=== PATIENT | female | born 2005 | race Caucasian/White ===

== ENCOUNTER 2023-07-17 22:57 | Emergency (ER) | payer BC ==
[2023-07-17 23:08] VITALS: BP 135/81; PULSE 113; RESP 18; TEMP 98.4; BMI 43.7
[2023-07-17] MEDS ORDERED: SODIUM CHLORIDE 0.9% 500 ML INFUS.BAG IV ONE (23:43)
[2023-07-18 00:57] LABS: BASO % 0.4 % (0-2.0); EOS % 0.3 % (0-4.5); HEMATOCRIT 34.1 % (32.4-45.2); HEMOGLOBIN 10.6 GM/dL (10.7-15.3); LYMPH % 13.2 % (8-40); MCH 20.4 pg (25.7-33.7); MEAN CELL VOLUME 65.8 fl (80-96); MONO % 6.3 % (3.8-10.2); NEUT % 79.8 % (42.8-82.8); PLATELET COUNT 321 10^3/uL (134-434); RBC 5.18 M/mm3 (3.60-5.2); RDW 16.9 % (11.6-15.6); WHITE BLOOD COUNT 11.4 K/mm3 (4.0-10.0)
[2023-07-18 01:16] LABS: POTASSIUM 4.1 mmol/L (3.5-5.1)
[2023-07-18 01:18] LABS: BLOOD UREA NITROGEN 13.1 mg/dL (7-18); CALCIUM 9.1 mg/dL (8.5-10.1)
[2023-07-18 01:19] LABS: ALBUMIN 3.5 g/dl (3.4-5.0)
[2023-07-18 01:22] LABS: CREATININE 0.7 mg/dL (0.55-1.3)
[2023-07-18 01:23] LABS: BILIRUBIN,TOTAL 0.2 mg/dL (0.2-1); TOT PROT 7.3 g/dl (6.4-8.2)
[2023-07-18 02:14] LABS: URINE APPEARANCE CLEAR; URINE BILIRUBIN NEGATIVE (NEGATIVE); URINE COLOR YELLOW; URINE GLUCOSE (UA) NEGATIVE (NEGATIVE); URINE KETONE 1+ (NEGATIVE); URINE LEUK ESTERASE NEGATIVE (NEGATIVE); URINE NITRITE NEGATIVE (NEGATIVE); URINE PROTEIN NEGATIVE (NEGATIVE); URINE UROBILINOGEN 0.2 mg/dL (0.2-1.0)
[2023-07-18 03:08] LABS: ANISOCYTOSIS 2+; MACROCYTOSIS 0; TEAR DROP CELLS 1+
[2023-07-18] MEDS ORDERED: LORazepam 2 MG TABLET PO ONE (04:10)
[2023-07-18] MEDS ORDERED: LORazepam 1 MG TABLET ONE (04:21)
== END 2023-07-18 04:49 | disposition home or self-care (01) ==
LOC: JER 22:57
DX: F41.0 Panic disorder [episodic paroxysmal anxiety] (principal); E66.01 Morbid (severe) obesity due to excess calories; Z68.41 Body mass index [BMI] 40.0-44.9, adult; Z20.822 Contact with and (suspected) exposure to COVID-19
CPT/HCPCS: 0241U-QW; 36415; 80053; 81003; 84436; 84439; 84443; 84703; 85025; 85379; 93005; 93010; 99284-25

== ENCOUNTER 2023-08-19 19:20 | Emergency (ER) | payer BC, OTHER ==
[2023-08-19 19:25] VITALS: TEMP 99; BMI 43.0
[2023-08-19] MEDS ORDERED: ACETAMINOPHEN 500 MG TABLET (FP) PO ONE (21:47)
[2023-08-19] MEDS ORDERED: SODIUM CHLORIDE 1,000 ML IV STA (21:49)
[2023-08-19] MEDS ORDERED: ACETAMINOPHEN 500 MG TABLET (FP) ONE (23:09)
[2023-08-19 23:18] LABS: BASO % 0.4 % (0-2.0); EOS % 1.2 % (0-4.5); HEMATOCRIT 34.1 % (32.4-45.2); HEMOGLOBIN 10.4 GM/dL (10.7-15.3); LYMPH % 16.2 % (8-40); MCH 20.3 pg (25.7-33.7); MCHC 30.6 g/dl (32.0-36.0); MEAN CELL VOLUME 66.6 fl (80-96); MEAN PLT VOLUME 8.8 fl (7.5-11.1); MONO % 5.2 % (3.8-10.2); PH,URINE 5.5 (5.0-8.0); PLATELET COUNT 331 10^3/uL (134-434); RBC 5.12 M/mm3 (3.60-5.2); RDW 16.7 % (11.6-15.6); URINE APPEARANCE CLOUDY; URINE BILIRUBIN NEGATIVE (NEGATIVE); URINE COLOR YELLOW; URINE GLUCOSE (UA) NEGATIVE (NEGATIVE); URINE KETONE NEGATIVE (NEGATIVE); URINE LEUK ESTERASE NEGATIVE (NEGATIVE); URINE NITRITE NEGATIVE (NEGATIVE); URINE PROTEIN NEGATIVE (NEGATIVE); WHITE BLOOD COUNT 11.9 K/mm3 (4.0-10.0)
[2023-08-19 23:46] LABS: CHLORIDE 110 mmol/L (98-107); POTASSIUM 4.2 mmol/L (3.5-5.1); SODIUM 141 mmol/L (136-145)
[2023-08-19 23:48] LABS: ANION GAP 6 mmol/L (4-13); BLOOD UREA NITROGEN 13.4 mg/dL (7-18); CALCIUM 9.4 mg/dL (8.5-10.1); CO2 25 mmol/L (21-32); GLUCOSE,RANDOM 97 mg/dL (74-106)
[2023-08-19 23:49] LABS: ALBUMIN 3.4 g/dl (3.4-5.0)
[2023-08-19 23:51] LABS: SGPT/ALT 16 U/L (13-61)
[2023-08-19 23:52] LABS: CREATININE 0.8 mg/dL (0.55-1.3); SGOT/AST 11 U/L (15-37)
[2023-08-19 23:53] LABS: BILIRUBIN,TOTAL < 0.1 mg/dL (0.2-1); TOT PROT 7.4 g/dl (6.4-8.2)
[2023-08-19 23:54] LABS: ALK PHOS 83 U/L (45-117)
[2023-08-20 00:22] VITALS: BP 126/80; PULSE 80; RESP 16
[2023-08-20 06:43] LABS: ANISOCYTOSIS 3+; MACROCYTOSIS 0; OVALOCYTE 1+; ROULEAU 2+
== END 2023-08-20 00:25 | disposition home or self-care (01) ==
LOC: JERFT 19:20 → JER 19:20
PROC: 3E0337Z Introduction of Electrolytic and Water Balance Substance into Peripheral Vein, Percutaneous Approach (ICD-10-PCS; principal; 2023-08-19)
DX: R53.1 Weakness (principal); R53.83 Other fatigue; R42 Dizziness and giddiness; Z20.822 Contact with and (suspected) exposure to COVID-19
CPT/HCPCS: 0241U-QW; 36415; 80053; 81003; 84703; 85025; 87086; 99284-25